=== PATIENT | female | born 1990 | race Two or more races ===

== ENCOUNTER 2020-01-29 23:46 | Emergency (ER) | payer OTHER ==
[~2020-01-29] VITALS: Ht 180.3 cm; Wt 81.6 kg
[2020-01-30] MEDS ORDERED: FAMOTIDINE INJ 20MG/2ML VIAL (S0028 PER 1) IVP ONE
[2020-01-30] MEDS ORDERED: methylPREDNISolone INJ 125 MG/2 ML VIAL (J2930) IV ONE
[2020-01-30 00:29] LABS: BASO % 0.5 % (0.0-1.0); EOS # 0.2 10^3/uL (0.0-0.5); EOS % 3.1 % (0.0-3.0); HEMATOCRIT 38.4 % (36.0-47.0); HEMOGLOBIN 12.6 g/dl (12.0-15.5); LYMPH % 48.4 % (24.0-44.0); MEAN CORPUSCULAR HGB CONC 32.8 g/dl (32.0-36.5); MEAN CORPUSCULAR VOLUME 91.4 fl (80.0-96.0); MONO # 0.6 10^3/uL (0.0-0.8); NEUTROPHILS # 2.4 10^3/uL (1.5-8.5); PLATELET COUNT, AUTOMATED 240 10^3/uL (150-450); WHITE BLOOD COUNT 6.1 10^3/uL (4.0-10.0)
[2020-01-30 00:51] LABS: BLOOD UREA NITROGEN 16 MG/DL (7-18); C REACTIVE PROTEIN QUANTITATIV < 0.30 MG/DL (0.00-0.30); CARBON DIOXIDE LEVEL 27 MEQ/L (21-32); CHLORIDE LEVEL 108 MEQ/L (98-107); CREATININE FOR GFR 0.72 MG/DL (0.55-1.30); GLOMERULAR FILTRATION RATE > 60.0 (>60); GLUCOSE, FASTING 92 MG/DL (70-100); POTASSIUM SERUM 3.8 MEQ/L (3.5-5.1); SODIUM LEVEL 139 MEQ/L (136-145)
[2020-01-30 00:52] LABS: ERYTHROCYTE SEDIMENTATION RATE 6 mm/hr (0-20)
[2020-01-30 00:55] LABS: HCG, SERUM QUALITATIVE NEGATIVE (NEGATIVE)
[2020-01-30] MEDS ORDERED: PRED20TA PO (01:11)
[2020-01-30 01:13] VITALS: BP 115/68
== END 2020-01-30 01:25 | disposition home or self-care (01) ==
LOC: M ED 23:46
DX: R22.0 Localized swelling, mass and lump, head (principal); L50.9 Urticaria, unspecified; T78.40XA Allergy, unspecified, initial encounter
CPT/HCPCS: 80048; 84703; 85025; 85652; 86140; 96374; 96375; 99284; J2930

== ENCOUNTER → 2020-03-03 | Outpatient (REF) | payer OTHER ==
[~2020-03-03] MED LIST: PRED20TA PO
[2020-03-03 14:46] LABS: HEMATOCRIT 42.6 % (36.0-47.0); HEMOGLOBIN 13.8 g/dl (12.0-15.5); MEAN CORPUSCULAR HEMOGLOBIN 29.7 pg (27.0-33.0); MEAN CORPUSCULAR HGB CONC 32.4 g/dl (32.0-36.5); MEAN CORPUSCULAR VOLUME 91.8 fl (80.0-96.0); PLATELET COUNT, AUTOMATED 167 10^3/uL (150-450); RED BLOOD COUNT 4.64 10^6/uL (4.00-5.40); WHITE BLOOD COUNT 5.8 10^3/uL (4.0-10.0)
[2020-03-03 15:21] LABS: ERYTHROCYTE SEDIMENTATION RATE 7 mm/hr (0-20)
[2020-03-03 20:16] LABS: ATYPICAL LYMPH 21 % (0-5); EOSINOPHILS 3 % (0-3); LYMPHOCYTES 37 % (16-44); MONOCYTES 7 % (0-5); NEUTROPHILS 29 % (28-66)
[2020-03-03 20:17] LABS: PLATELET ESTIMATE NORMAL (NORMAL)
== END ==
LOC: M SFHCLERA 12:13
PROVIDERS: ATTEND Family Medicine
DX: R68.83 Chills (without fever) (principal)

== ENCOUNTER → 2020-03-05 | Outpatient (REF) | payer OTHER ==
[2020-03-05 13:28] LABS: ALBUMIN 3.6 GM/DL (3.2-5.2); ALT/SGPT 126 U/L (12-78); BILIRUBIN,TOTAL 0.4 MG/DL (0.2-1.0); BLOOD UREA NITROGEN 15 MG/DL (7-18); CALCIUM LEVEL 8.4 MG/DL (8.5-10.1); CARBON DIOXIDE LEVEL 27 MEQ/L (21-32); CHLORIDE LEVEL 104 MEQ/L (98-107); CREATININE FOR GFR 0.69 MG/DL (0.55-1.30); GLOMERULAR FILTRATION RATE > 60.0 (>60); GLUCOSE, FASTING 93 MG/DL (70-100); SODIUM LEVEL 137 MEQ/L (136-145); TOTAL PROTEIN 7.1 GM/DL (6.4-8.2)
[2020-03-06 09:41] LABS: HIV 1&2 SCREEN CENTAUR NEGATIVE (NEGATIVE)
[2020-03-09 13:06] LABS: EBV VIRAL CAPSID AG IgM 43.9 U/mL (0.0-35.9); Lyme Disease IgG/IgM Antibodie <0.91 ISR (0.00-0.90); Lyme Disease IgM Ab Quantitati <0.80 index (0.00-0.79)
== END ==
LOC: M SFHCLERA 08:47
PROVIDERS: ATTEND Family Medicine
DX: R68.83 Chills (without fever) (principal)

== ENCOUNTER → 2020-03-10 | Outpatient (CLI) | payer OTHER ==
--- NOTE | 2020-03-10 15:33 | REPPI ---
Two-view chest: 03/10/2020. Indication: Fever. Leukocytosis. An comparison: None. Findings: The lungs are clear. There is no pleural effusion or pneumothorax. The cardiac silhouette is unremarkable. Mild dextroscoliotic curve of the thoracic spine is present. Impression: Clear lungs. Electronically Signed by Quan Parker DO 03/10/2020 03:25 P
== END ==
LOC: M PLAIMG 14:42
PROVIDERS: ATTEND Family Medicine
DX: D72.820 Lymphocytosis (symptomatic) (principal)

== ENCOUNTER → 2020-03-10 | Outpatient (REF) | payer OTHER ==
[2020-03-11 10:23] LABS: HEPATITIS A ANTIBODY IGM NEGATIVE (NEGATIVE); HEPATITIS B CORE ANTIBODY IGM NEGATIVE (NEGATIVE); HEPATITIS B SURFACE ANTIGEN NEGATIVE (NEGATIVE); HEPATITIS C VIRUS ABY INDEX 0.6 INDEX (<0.8)
== END ==
LOC: M SFHCLERA 14:37
PROVIDERS: ATTEND Family Medicine
DX: D72.820 Lymphocytosis (symptomatic) (principal)

== ENCOUNTER → 2020-04-02 | Outpatient (REF) | payer OTHER ==
[2020-04-02 15:34] LABS: BASO % 0.6 % (0.0-1.0); EOS # 0.1 10^3/uL (0.0-0.5); EOS % 1.9 % (0.0-3.0); HEMATOCRIT 41.5 % (36.0-47.0); HEMOGLOBIN 13.2 g/dl (12.0-15.5); LYMPH # 2.8 10^3/uL (1.5-5.0); LYMPH % 43.9 % (24.0-44.0); MEAN CORPUSCULAR HGB CONC 31.8 g/dl (32.0-36.5); MEAN CORPUSCULAR VOLUME 91.2 fl (80.0-96.0); MONO # 0.4 10^3/uL (0.0-0.8); MONO % 6.8 % (0.0-5.0); NEUTROPHILS # 2.9 10^3/uL (1.5-8.5); NEUTROPHILS % 46.5 % (36.0-66.0); PLATELET COUNT, AUTOMATED 244 10^3/uL (150-450); RED BLOOD COUNT 4.55 10^6/uL (4.00-5.40); WHITE BLOOD COUNT 6.3 10^3/uL (4.0-10.0)
[2020-04-02 15:38] LABS: ALBUMIN 3.9 GM/DL (3.2-5.2); BILIRUBIN,DIRECT 0.1 MG/DL (0.0-0.2); BILIRUBIN,TOTAL 0.4 MG/DL (0.2-1.0)
== END ==
LOC: M SFHCLERA 12:48
PROVIDERS: ATTEND Family Medicine
DX: Z22.7 Latent tuberculosis (principal)

== ENCOUNTER → 2020-08-13 | Outpatient (REF) | payer OTHER | LOC: M SFHCLERA 11:11 | PROVIDERS: ATTEND Family Medicine | DX: Z00.00 Encounter for general adult medical examination without abnormal findings (principal); Z12.4 Encounter for screening for malignant neoplasm of cervix ==

== ENCOUNTER → 2020-09-03 | Outpatient (REF) | payer OTHER | LOC: M SFHCLERA 15:58 | PROVIDERS: ATTEND Family Medicine | DX: Z12.4 Encounter for screening for malignant neoplasm of cervix (principal); Z01.419 Encounter for gynecological examination (general) (routine) without abnormal findings ==

== ENCOUNTER → 2020-09-11 | Outpatient (CLI) | payer OTHER ==
--- NOTE | 2020-09-11 16:55 | REP ---
INDICATION: CONTRACEPTIVE SURVEILLANCE, IUD. COMPARISON: None. TECHNIQUE: Transabdominal high endovaginal and Doppler ultrasound imaging of the pelvis. FINDINGS: The bladder is adequately distended. The uterus is anteverted and normal size measuring 9.1 x 3.2 x 5.1 cm. The myometrium is unremarkable. The endometrium is not thickened measuring up to 4 mm. There is an IUD satisfactorily positioned within the endometrial canal. There is a trace of free fluid within the endometrial canal in the lower uterine segment. Right ovary: The right ovary is normal size measuring 4.5 x 3.2 by 3.1 cm. There is no dominant right ovarian mass or cyst. There is vascular flow with the Doppler resistive index in the parenchymal arteries measuring 0.69. Left ovary: Left ovary is normal size measuring 3.3 by 2.3 x 3.0 cm. There is no dominant mass or cyst. There is vascular flow with the Doppler resistive index of the parenchymal arteries measuring 0.68. There is no free fluid in the pelvis. IMPRESSION: There is an IUD satisfactory position within the endometrial canal. Otherwise, essentially negative pelvic ultrasound. <Electronically signed by Sean Pool > 09/11/20 [id number]
== END ==
LOC: M RAD 12:51
PROVIDERS: ATTEND Family Medicine
DX: Z30.431 Encounter for routine checking of intrauterine contraceptive device (principal)